=== PATIENT | female | born 1945 | race Caucasian/White ===

== ENCOUNTER 2019-04-27 09:52 | Day surgery (SDC) | payer OTHER ==
[~2019-04-27 09:52] MED LIST: BUPIVACAINE HCL/PF 0.25% (2.5MG/ML) 10 ML VIAL IJ ONE
[2019-04-27 10:13] VITALS: BMI 30.1
[2019-04-27] MEDS ORDERED: MIDAZOLAM HCL 2 MG/2 ML SINGLE DOSE VIAL ONE (10:53)
[2019-04-27] MEDS ORDERED: PROPOFOL 20 ML ONE (11:17)
[2019-04-27] MEDS ORDERED: ceFAZolin SODIUM 1 GM VIAL ONE ×2 (11:25)
[2019-04-27] MEDS ORDERED: ONDANSETRON 4 MG/2 ML VIAL ONE (11:25)
[2019-04-27] MEDS ORDERED: DEXAMETHASONE SOD PHOSPHATE 4 MG/1 ML VIAL ONE (11:25)
[2019-04-27] MEDS ORDERED: BUPIVACAINE HCL/PF 2.5 MG/ML - 30 ML VIAL IJ ONE (11:39)
[2019-04-27] MEDS ORDERED: LABETALOL HCL 5 MG/1 ML (100MG/20 ML VIAL) ONE (11:58)
[2019-04-27] MEDS ORDERED: EPINEPHrine 1:1,000 1 MG/1 ML - 30ML VIAL (INJECTION) ONE (12:14)
[2019-04-27] MEDS ORDERED: KETOROLAC TROMETHAMINE 30 MG/1 ML VIAL ONE (12:18)
[2019-04-27] MEDS ORDERED: BUPIVACAINE HCL/PF 0.25% (2.5MG/ML) 10 ML VIAL IJ ONE (12:26)
[2019-04-27] MEDS ORDERED: HYDROmorphone HCL 0.5 MG/0.5 ML SYRINGE ONE (12:37)
[2019-04-27] MEDS ORDERED: HYDROmorphone HCL CARPU-JECT 2 MG/1 ML DISP.SYRIN IVPB ONE (12:39)
[2019-04-27] MEDS ORDERED: MIDAZOLAM HCL 2 MG/2 ML SINGLE DOSE VIAL IVPUSH ONE (12:51)
[2019-04-27 16:12] VITALS: BP 160/90; PULSE 79; TEMP 98.3
--- NOTE | 2019-04-28 09:02 | OP ---
DATE OF OPERATION: 04/27/2019 Done at [facility] SURGEON: Rocky Beaulieu MD SURGICAL ENDOSCOPIST: SIRENA Montalvo PREOPERATIVE DIAGNOSES: 1. Left medial femoral condyle fracture distal portion of the medial femoral condyle, insufficiency fracture. 2. Left knee medial and lateral meniscal tear. 3. Left knee cartilage tear. 4. Left knee synovitis. POSTOPERATIVE DIAGNOSES: 1. Left medial femoral condyle fracture distal portion of the medial femoral condyle, insufficiency fracture. 2. Left knee medial and lateral meniscal tear. 3. Left knee cartilage tear. 4. Left knee synovitis. PROCEDURE: 1. Left knee arthroscopy with arthroscopic and percutaneous repair of subchondroplasty fracture. 2. Left knee arthroscopy, partial meniscectomy medial and lateral meniscus. 3. Left knee arthroscopy with chondroplasty and abrasion-plasty. 4. Left knee arthroscopy with synovectomy. FINDINGS: 1. Medial meniscus [id number] horn tear anterior third. 2. Lateral meniscus central body tear. 3. Synovitis patellofemoral medial and lateral notch area. 4. A 4-cm x 2-cm grade 3 changes central medial femoral condyle. 5. ACL and PCL intact. 6. Minor grade 1-2 changes lateral joint line. 7. grade 2 cartilage in the patellofemoral trochlea with 2-cm x 1-cm grade 4 changes lateral facet patella. PROCEDURE: Informed consent was obtained. The patient came to the operating room, where the lower extremity was prepped and draped in a sterile fashion. A tourniquet was placed on the upper thigh, but not inflated. Using standard arthroscopic technique, a lateral incision and portal was made to allow for introduction of the camera into the suprapatellar bursa. This was then taken to the medial joint line, where under direct visualization, a medial incision and portal was made. Excessive synovium noted in the medial, lateral and patellofemoral and notch area was removed by an upbiter, shaver and Bovie cautery. This was found to bring in inflammatory tissue into the joint surface, a source of pain and dysfunction. Probing of the medial and lateral meniscus found tears, as described in the findings. These were removed with the upbiter and shaver and taken back to a stable rim. After the arthroscopy, under direct visualization of the arthroscopy as well with percutaneous fixation with C-arm fluoroscopy, a guide was placed into the medial femoral condyle in the area of the insufficiency fracture. It was then injected with 4 mL using the calcium combination to repair the fracture area. This was done under x-ray C-arm fluoroscopy as well as arthroscopic evaluation. After it was allowed to cure for 8 minutes, it was removed. There was no evidence of release into the joint. Grade 2 to 3 degenerative changes were treated with a chondroplasty, removing all flaking surfaces with low-setting Bovie along the periphery to prevent further flaking. Grade 4 changes, as noted, were treated with an abrasoplasty, creating a bleeding surface at the bone/cartilage interface. Aggressive debridement with shaver/mathieu created bleeding surface. Micro fracture also done when indicated in findings. All areas of the knee were once again reexamined. The knee was then drained and a single suture was placed in all portals. Incisions were closed with 3-0 nylon single interrupted sutures. Sterile dressing was placed. Patient was transferred to the recovery room without complication. The PA listed above was present and assisted at surgery. Their presence was absolutely medically necessary for the completion of the procedure. They helped hold the arthroscopy, pass instruments (and implants when indicated) and the procedure could not have been completed without their assistance. ROCKY BEAULIEU M.D. [id number]
--- NOTE | 2019-05-01 15:06 | PATH ---
Surgical Pathology Report Patient Name: EDILBERTO [place] [facility]. Rec. #: [id number] /Age/Gender: 1945 (Age: 74) / F Account: [id number] Location: [facility] AM[facility]UL[facility] Taken: 04/27/2019 Received: 04/27/2019 Reported: 05/01/2019 Physicians: Rocky Eng M.D. Specimen(s) Received SHAVINGS LEFT KNEE Clinical History Left knee internal derangement Final Diagnosis KNEE SHAVINGS, LEFT, ARTHROSCOPY, SUBCHONDROPLASTY, PARTIAL MEDIAL/LATERAL MENISCECTOMY, SYNOVECTOMY: FRAGMENTS OF CARTILAGE, DENSE FIBROCONNECTIVE TISSUE, ADIPOSE TISSUE, AND SYNOVIUM. 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 Electronically Signed Marilynn Manzanares M.D. Gross Description Received in formalin, labeled "left knee shavings," is a 4.5 x 3.5 x 0.4 cm. aggregate of archibald-yellow soft tissue fragments. A roofing sales representative portion is submitted in one cassette. 04/30/2019 [facility]04/30/2019
== END 2019-04-27 16:12 | disposition home or self-care (01) ==
LOC: FASU 09:52
PROVIDERS: ATTEND Orthopaedic Surgery
PROC: 0SBD4ZZ Excision of Left Knee Joint, Percutaneous Endoscopic Approach (ICD-10-PCS; 2019-04-27)
PROC: 0SBD4ZZ Excision of Left Knee Joint, Percutaneous Endoscopic Approach (ICD-10-PCS; 2019-04-27)
PROC: 0SBD4ZZ Excision of Left Knee Joint, Percutaneous Endoscopic Approach (ICD-10-PCS; 2019-04-27)
PROC: 0SU Lower Joints, Supplement (ICD-10-PCS; 2019-04-27)
PROC: 0SBD4ZZ Excision of Left Knee Joint, Percutaneous Endoscopic Approach (ICD-10-PCS; principal; 2019-04-27 11:47)
DX: S72.432A Displaced fracture of medial condyle of left femur, initial encounter for closed fracture (principal); S83.242A Other tear of medial meniscus, current injury, left knee, initial encounter; S83.282A Other tear of lateral meniscus, current injury, left knee, initial encounter; S83.8X2A Sprain of other specified parts of left knee, initial encounter; M65.862 Other synovitis and tenosynovitis, left lower leg; X58.XXXA Exposure to other specified factors, initial encounter; Y93.9 Activity, unspecified; Y92.9 Unspecified place or not applicable
CPT/HCPCS: 73560-TC-LT-FY; 88304-TC; 94760